=== PATIENT | female | born 1955 | race Caucasian/White ===

== ENCOUNTER 2019-07-13 12:52 | Emergency (ER) | payer SELFPAY ==
[2019-07-13 13:20] LABS: PTT,PARTIAL THROMBOPLSTIN TIME 29.6 SEC (23.2-32.3)
[2019-07-13 13:26] LABS: CHLORIDE,CL 91 mEq/L (98-106); SODIUM,NA 130 mEq/L (136-145)
[2019-07-13 13:28] VITALS: BP 153/83; PULSE 84
[2019-07-13] MEDS ORDERED: Sodium Chloride 0.9% 1,000 ML IV ONE (13:37)
[2019-07-13] MEDS ORDERED: Potassium Chloride 10 MEQ Tab.ER PO ONE (13:38)
--- NOTE | 2019-07-13 14:53 | EDM.PDOC ---
ED HPI GENERAL MEDICAL PROBLEM - General Chief Complaint: General Stated Complaint: elevated BP Time Seen by Provider: 07/13/19 13:09 Source of Information: Reports: Patient History Limitations: Reports: No Limitations - History of Present Illness INITIAL COMMENTS - FREE TEXT/NARRATIVE: This patient is a 63 year old female that presents to the ER. Patient reports that for the last several weeks she has danyell having high readings on her BP. She reports that she has also had intermittent headaches for several weeks, chest pain for weeks that is worse since yesterday. She also reports having many pain complaints and thinks its all related to her fibromyalgia and/or BP per patient. Patient reports that she tripped down four steps today while using her cane. Patient reports having right foot pain, but reports she has had this for a long time and nothing new. No injuries reported from fall. Patient denies loc , n, v, vision changes. Duration: Week(s): ("weeks") Location: Reports: Head, Chest Improves with: Reports: None Worsens with: Reports: None Associated Symptoms: Reports: Chest Pain, Headaches. Denies: Confusion, Cough, cough w sputum, Diaphoresis, Fever/Chills, Loss of Appetite, Malaise, Nausea/ Vomiting, Rash, Seizure, Shortness of Breath, Syncope, Weakness - Related Data Allergies Allergy/AdvReac Type Severity Reaction Status Date / Time No Known Allergies Allergy Verified 07/13/19 12:54 Home Meds: Home Meds ALPRAZolam [Xanax] 1 mg PO Q8H 09/26/15 [History] Cyclobenzaprine [Flexeril] 10 mg PO TID PRN 09/26/15 [History] Hydrocodone/Acetaminophen [[place] 5-325] 1 - 2 tab PO Q6H PRN 09/26/15 [History] Lisinopril/Hydrochlorothiazide [Lisinopril-Hctz 20-25 mg Tab] 1 tab PO DAILY [History] traMADol [Ultram] 50 mg PO Q6H PRN 09/26/15 [History] 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 Denies: Palpitations, Syncope Endocrine: Reports: No Symptoms GI/Abdominal: Reports: No Symptoms : Reports: No Symptoms Musculoskeletal: Reports: No Symptoms Skin: Reports: No Symptoms Neurological: Reports: Headache Psychiatric: Reports: No Symptoms Hematologic/Lymphatic: Reports: No Symptoms Immunologic: Reports: No Symptoms ED EXAM, GENERAL - Physical Exam Exam: See Below Exam Limited By: No Limitations General Appearance: Alert, WD/WN, No Apparent Distress Eye Exam: Bilateral Eye: EOMI, Normal Inspection, PERRL Ears: Normal External Exam, Normal Canal, Hearing Grossly Normal, Normal TMs Ear Exam: Bilateral Ear: Auricle Normal, Canal Normal, TM normal Nose: Normal Inspection, Normal Mucosa, No Blood Throat/Mouth: Normal Inspection, Normal Lips, Normal Teeth, Normal Gums, Normal Oropharynx, Normal Voice, No Airway Compromise Head: Atraumatic, Normocephalic Neck: Normal Inspection, Supple, Non-Tender, Full Range of Motion Respiratory/Chest: No Respiratory Distress, Lungs Clear, Normal Breath Sounds, No Accessory Muscle Use Cardiovascular: Normal Peripheral Pulses, Regular Rate, Rhythm, No Edema, No Gallop, No JVD, No Murmur, No Rub Peripheral Pulses: 2+: Radial (L), Radial (R), Posterior Tibial (L), Posterior Tibial (R) GI/Abdominal: Soft, Non-Tender Extremities: Normal Inspection, Normal Range of Motion, Non-Tender, No Pedal Edema, Normal Capillary Refill Neurological: Alert, Oriented, CN II-XII Intact, Normal Cognition, Normal Gait ( with cane), No Motor/Sensory Deficits Psychiatric: Normal Affect, Normal Mood Skin Exam: Warm, Dry, Intact, Normal Color, No Rash Lymphatic: No Adenopathy Course - Vital Signs Last Recorded V/S: Last Vital Signs Temp 99.1 F 07/13/19 12:58 Pulse 84 07/13/19 12:58 Resp 18 07/13/19 12:58 BP 153/83 H 07/13/19 12:58 Pulse Ox 97 07/13/19 12:58 - Orders/Labs/Meds Orders: Active Orders 24 hr Category Date Time Status Chest 2V [CR] Stat Exams 07/13/19 12:56 Taken TROPONIN I [CHEM] Stat Lab 07/13/19 16:00 Ordered Labs: Laboratory Tests 07/13/19 07/13/19 07/13/19 Range/Units 12:56 12:56 12:56 WBC 4.8 L (5.0-10.0) 10^3/uL RBC 4.58 (4.00-5.50) 10^6/uL Hgb 13.6 (12.0-16.0) g/dL Hct 38.5 (37.0-47.0) % MCV 84.1 (82.0-94.0) fL MCH 29.7 (27.0-32.0) pg MCHC 35.3 (33.0-38.0) g/dL RDW Coeff of Alissa 12.3 (11.0-15.0) % Plt Count 309 (150-400) 10^3/uL Neut % (Auto) 55.8 (35-85) % Lymph % (Auto) 25.4 (10-55) % [place] % (Auto) 17.8 H (0-16) % Eos % (Auto) 0.6 (0-5) % Baso % (Auto) 0.4 (0-3) % Neut # (Auto) 2.70 (1.80-7.00) 10^3/uL Lymph # (Auto) 1.23 (1.00-4.80) 10^3/uL [place] # (Auto) 0.86 H (0.00-0.80) 10^3/uL Eos # (Auto) 0.03 (0.00-0.45) 10^3/uL Baso # (Auto) 0.02 10^3/uL PT 10.1 (9.7-12.3) SEC INR 0.98 (0.92-1.18) APTT 29.6 (23.2-32.3) SEC Sodium 130 L (136-145) mEq/L Potassium 2.9 L* (3.5-5.0) mEq/L Chloride 91 L (98-106) mEq/L Carbon Dioxide 30 (21-32) mmol/L BUN 9 (7-18) mg/dL Creatinine 0.9 (0.6-1.0) mg/dL Est Cr Clr Drug Dosing TNP Estimated GFR (MDRD) > 60 (>=60) mL/min Glucose 113 H D (75-99) mg/dL Calcium 10.0 (8.4-10.1) mg/dL Total Bilirubin 0.3 (0.0-1.0) mg/dL AST 32 (15-37) U/L ALT 30 (12-78) U/L Alkaline Phosphatase 64 (46-116) U/L Lactate Dehydrogenase 233 H (100-190) U/L Creatine Kinase 421 H (21-215) U/L Troponin I 0.021 (0.00-0.06) ng/mL Total Protein 7.1 (6.4-8.2) g/dL Albumin 4.0 (3.4-5.0) g/dL Lipase 175 (73-393) U/L Meds: Medications Discontinued Medications Generic Name Dose Route Start Last Admin Trade Name Freq PRN Reason Stop Dose Admin Sodium Chloride 1,000 mls @ 1,000 mls/hr 07/13/19 13:37 Normal Saline IV 07/13/19 14:36 .BOLUS ONE Potassium Chloride 40 meq 07/13/19 13:38 Klor-Con 10 PO 07/13/19 13:39 ONETIME ONE - Re-Assessments/Exams Free Text/Narrative Re-Assessment/Exam: 07/13/19 13:26 This patient has low potassium, ordered potassium. Also, ordered a NS bolus. I also ordered head ct due to patient headaches. The patient has refused all. Patient instead has requested I fill out an insurance form for an insurance claim for her fall. The patient has also asked about the closest doctor to help her with disability. I reviewed the patient insurance form, there is no placed for a provider to fill out the claim, it is also patient based. She then asked me to write her an order for a better cane then the one she has. Her cane appears to be functioning without difficulty. Patient is alert and oriented. I also wanted to repeat a troponin, she has refused this as well. Patient explained all risk vs benefits. She was explained to see her PCP for most of her requests. Patient signed AMA and left against medical advice. She is aware of risks. Departure - Departure Time of Disposition: 15:06 Disposition: Against Medical Advice 07 Condition: Undetermined Clinical Impression: Left against medical advice Chest pain Qualifiers: Chest pain type: other chest pain Qualified Code(s): R07.89 - Other chest pain - Discharge Information *PRESCRIPTION DRUG MONITORING PROGRAM REVIEWED*: Not Applicable *COPY OF PRESCRIPTION DRUG MONITORING REPORT IN PATIENT KANDIS: Not Applicable Instructions: Nonspecific Chest Pain, [id number] Referrals: PCP,None [Primary Care Provider] - Forms: ED Department Discharge Additional Instructions: Followup with a primary care provider Return to the ER for emergencies Sepsis Event Note - Evaluation Sepsis Screening Result: No Definite Risk - Focused Exam Vital Signs: Vital Signs Temp Pulse Resp BP Pulse Ox 07/13/19 12:58 99.1 F 84 18 153/83 H 97 Date Exam was Performed: 07/13/19 Time Exam was Performed: 15:24 - My Orders Last 24 Hours: My Active Orders 07/13/19 12:56 Chest 2V [CR] Stat 07/13/19 16:00 TROPONIN I [CHEM] Stat - Assessment/Plan Last 24 Hours: My Active Orders 07/13/19 12:56 Chest 2V [CR] Stat 07/13/19 16:00 TROPONIN I [CHEM] Stat Plan: PLEASE SEE RN NOTE FOR PFSH
== END 2019-07-13 15:20 | disposition left against medical advice (07) ==
LOC: CC.ED 12:52
DX: R07.89 Other chest pain (principal); E87.6 Hypokalemia; Z79.899 Other long term (current) drug therapy
CPT/HCPCS: 36415; 71046; 80053; 82550; 83615; 83690; 84484; 85025; 85610; 85730; 93005; 99285-25

== ENCOUNTER 2020-04-28 14:40 | Emergency (ER) | payer SELFPAY ==
[2020-04-28 15:00] VITALS: BP 137/96; PULSE 94
[2020-04-28 16:53] LABS: CHLORIDE,CL 98 mEq/L (98-106); SODIUM,NA 139 mEq/L (136-145)
[2020-04-28 17:19] LABS: PTT,PARTIAL THROMBOPLSTIN TIME 25.9 SEC (23.2-32.3)
[2020-04-28] MEDS: Iopamidol 755 Mg/ML 100 ML Bottle IVPUSH ONE (17:53)
--- NOTE | 2020-04-28 18:49 | EDM.PDOC ---
ED HPI GENERAL MEDICAL PROBLEM - General Chief Complaint: General Stated Complaint: blood pressure Time Seen by Provider: 04/28/20 15:15 Source of Information: Reports: Patient History Limitations: Reports: No Limitations - History of Present Illness INITIAL COMMENTS - FREE TEXT/NARRATIVE: Elmira is a 64 yo female who presents to the ED via [facility] of an elevated blood pressure at home, chronic pain, shortness of breath and recent fall at home. Beth did have an appointment in clinic today but was really anxious and worrying about getting to her appointment which caused her to call the ambulance. States her blood pressure has been a lot higher at home and she did end up taking extra Lisinopril dose to help with it. Admits to persistent chest pain at times as well. Denies any change in discomfort or shortness of breath with exertion. States she does walk with a walker or cane at home secondary to a bad right ankle. States she was suppose to have surgery a few years back on her right foot/ankle but due to the cost, elected to not proceed. Admits with going up and down steps she has found herself to be extremely short of breath. Also states her allergies are acting up and would like a Zpack as she has a history of sinus infections. Location: Reports: Chest Lower Back Pain Score (Numeric/FACES): 8 - Related Data Allergies Allergy/AdvReac Type Severity Reaction Status Date / Time No Known Allergies Allergy Verified 04/28/20 15:16 Home Meds: Home Meds ALPRAZolam [Xanax] 1 mg PO Q8H 09/26/15 [History] Cyclobenzaprine [Flexeril] 10 mg PO TID PRN 09/26/15 [History] Hydrocodone/Acetaminophen [[place] 5-325] 1 - 2 tab PO Q6H PRN 09/26/15 [History] Lisinopril/Hydrochlorothiazide [Lisinopril-Hctz 20-25 mg Tab] 1 tab PO DAILY 09/26/15 [History] traMADol [Ultram] 50 mg PO Q6H PRN 09/26/15 [History] Aspirin 325 mg PO DAILY 04/28/20 [History] Budesonide [Rhinocort Allergy] 1 puff IN DAILY PRN 04/28/20 [History] Calcium Carbonate [Tums] 200 mg PO DAILY PRN 04/28/20 [History] Chlorpheniramine Maleate 4 mg PO DAILY PRN 04/28/20 [History] Cholecalciferol (Vitamin D3) [Vitamin D3] 5,000 unit PO BID 04/28/20 [History] Escitalopram [Lexapro] 20 mg PO DAILY 04/28/20 [History] Herbal Drugs [Colon Herbal Cleanser] 1 each PO BID PRN 04/28/20 [History] L.acidoph,Paracasei, B.lactis [Probiotic] 1 each PO DAILY 04/28/20 [History] Loratadine [Claritin] 10 mg PO DAILY 04/28/20 [History] Melatonin/Pyridoxine HCl (B6) [Melatonin 3 mg Tablet] 1 each PO BEDTIME 04/28/20 [History] Potassium Bicarbonate 1 gm MC DAILY 04/28/20 [History] guaiFENesin [Guaifenesin] 400 mg PO DAILY 04/28/20 [History] lisinopriL [Lisinopril] 20 mg PO DAILY PRN 04/28/20 [History] Past Medical History HEENT History: Reports: Impaired Vision Cardiovascular History: Reports: Hypertension Respiratory History: Reports: None Gastrointestinal History: Reports: Chronic Constipation (narcotic induced) Genitourinary History: Reports: None 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 Musculoskeletal History: Reports: Arthritis, Neck Pain, Chronic Neurological History: Reports: None Psychiatric History: Reports: Anxiety, Depression Oncologic (Cancer) History: Reports: Other (See Below) 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 - Infectious Disease History Infectious Disease History: Reports: Human Papilloma Virus (HPV) - Past Surgical History Female Surgical History: Reports: Hysterectomy Musculoskeletal Surgical History: Reports: Other (See Below) Other Musculoskeletal Surgeries/Procedures:: foot surgery Social & Family History - Tobacco Use Tobacco Use Status *Q: Never Tobacco User Second Hand Smoke Exposure: No - Caffeine Use Caffeine Use: Reports: Soda Other Caffeine Use: daily - Recreational Drug Use Recreational Drug Use: No ED ROS GENERAL - Review of Systems Review Of Systems: See Below Constitutional: Reports: Chills, Weakness, Decreased Appetite. Denies: Fever HEENT: Reports: No Symptoms Respiratory: Reports: Shortness of Breath. Denies: Wheezing, Cough Cardiovascular: Reports: Chest Pain, Blood Pressure Problem, Dyspnea on Exertion. Denies: Edema, Palpitations, Syncope GI/Abdominal: Reports: Constipation. Denies: Abdominal Pain, Bloody Stool, Diarrhea, Nausea, Vomiting : Reports: No Symptoms Musculoskeletal: Reports: Joint Pain (chronic foot pain, right elbow pain) Skin: Reports: No Symptoms Neurological: Reports: Headache. Denies: Numbness, Seizure, Syncope, Tingling, Weakness, Change in Speech Psychiatric: Reports: Anxiety, Depression ED EXAM, GENERAL - Physical Exam Exam: See Below Exam Limited By: No Limitations General Appearance: Alert, WD/WN, No Apparent Distress Eye Exam: Bilateral Eye: EOMI, Normal Inspection Ears: Normal External Exam, Normal Canal, Hearing Grossly Normal, Normal TMs Nose: Normal Inspection, No Blood Throat/Mouth: Normal Inspection, Normal Lips, Normal Teeth, Normal Oropharynx, Normal Voice, No Airway Compromise Head: Atraumatic, Normocephalic Neck: Normal Inspection, Supple Respiratory/Chest: No Respiratory Distress, Lungs Clear, Normal Breath Sounds, No Accessory Muscle Use Cardiovascular: Normal Peripheral Pulses, Regular Rate, Rhythm, No Edema, No Murmur GI/Abdominal: Normal Bowel Sounds, Soft, Non-Tender, No Distention Extremities: Normal Inspection, No Pedal Edema Neurological: Alert, Oriented, Normal Cognition, No Motor/Sensory Deficits Psychiatric: Anxious Skin Exam: Warm, Dry, Intact, Normal Color, No Rash #1 Interpretation EKG Date: 04/28/20 Rhythm: NSR Comparison: No Change Course - Vital Signs Last Recorded V/S: Last Vital Signs Temp 98.9 F 04/28/20 14:48 Pulse 94 04/28/20 14:48 Resp 12 04/28/20 14:48 BP 137/96 H 04/28/20 14:48 Pulse Ox 95 04/28/20 14:48 - Orders/Labs/Meds Orders: Active Orders 24 hr Category Date Time Status CTA Chest W WO Contrast [Ang Chest] [CT] Stat Exams 04/28/20 17:22 Taken Labs: Laboratory Tests 04/28/20 04/28/20 04/28/20 Range/Units 16:36 16:36 16:36 WBC 7.0 (5.0-10.0) 10^3/uL RBC 5.19 (4.00-5.50) 10^6/uL Hgb 14.9 (12.0-16.0) g/dL Hct 44.9 (37.0-47.0) % MCV 86.5 (82.0-94.0) fL MCH 28.7 (27.0-32.0) pg MCHC 33.2 (33.0-38.0) g/dL RDW Coeff of Alissa 13.3 (11.0-15.0) % Plt Count 349 (150-400) 10^3/uL Neut % (Auto) 57.1 (35-85) % Lymph % (Auto) 29.5 (10-55) % [place] % (Auto) 11.8 (0-16) % Eos % (Auto) 1.0 (0-5) % Baso % (Auto) 0.6 (0-3) % Neut # (Auto) 4.01 (1.80-7.00) 10^3/uL Lymph # (Auto) 2.07 (1.00-4.80) 10^3/uL [place] # (Auto) 0.83 H (0.00-0.80) 10^3/uL Eos # (Auto) 0.07 (0.00-0.45) 10^3/uL Baso # (Auto) 0.04 10^3/uL ESR 5 (0-20) mm/hr PT 10.0 (9.7-12.3) SEC INR 0.99 (0.92-1.18) APTT 25.9 (23.2-32.3) SEC D-Dimer, Quantitative 4.59 H (0.00-0.50) Sodium 139 (136-145) mEq/L Potassium 3.5 D (3.5-5.0) mEq/L Chloride 98 (98-106) mEq/L Carbon Dioxide 33 H (21-32) mmol/L BUN 17 D (7-18) mg/dL Creatinine 0.9 (0.6-1.0) mg/dL Est Cr Clr Drug Dosing 55.25 mL/min Estimated GFR (MDRD) > 60 (>=60) mL/min Glucose 89 (75-99) mg/dL Calcium 10.0 (8.4-10.1) mg/dL Magnesium 2.0 (1.8-2.4) mg/dL Total Bilirubin 0.3 (0.0-1.0) mg/dL AST 20 (15-37) U/L ALT 33 (12-78) U/L Alkaline Phosphatase 67 (46-116) U/L Lactate Dehydrogenase 227 H (100-190) U/L Creatine Kinase 110 (21-215) U/L Troponin I < 0.017 (0.00-0.06) ng/mL Total Protein 8.5 H (6.4-8.2) g/dL Albumin 4.5 (3.4-5.0) g/dL SARS CoV-2 RNA Rapid JOCELYNE (NEGATIVE) 04/28/20 Range/Units 17:28 WBC (5.0-10.0) 10^3/uL RBC (4.00-5.50) 10^6/uL Hgb (12.0-16.0) g/dL Hct (37.0-47.0) % MCV (82.0-94.0) fL MCH (27.0-32.0) pg MCHC (33.0-38.0) g/dL RDW Coeff of Alissa (11.0-15.0) % Plt Count (150-400) 10^3/uL Neut % (Auto) (35-85) % Lymph % (Auto) (10-55) % [place] % (Auto) (0-16) % Eos % (Auto) (0-5) % Baso % (Auto) (0-3) % Neut # (Auto) (1.80-7.00) 10^3/uL Lymph # (Auto) (1.00-4.80) 10^3/uL [place] # (Auto) (0.00-0.80) 10^3/uL Eos # (Auto) (0.00-0.45) 10^3/uL Baso # (Auto) 10^3/uL ESR (0-20) mm/hr PT (9.7-12.3) SEC INR (0.92-1.18) APTT (23.2-32.3) SEC D-Dimer, Quantitative (0.00-0.50) Sodium (136-145) mEq/L Potassium (3.5-5.0) mEq/L Chloride (98-106) mEq/L Carbon Dioxide (21-32) mmol/L BUN (7-18) mg/dL Creatinine (0.6-1.0) mg/dL Est Cr Clr Drug Dosing mL/min Estimated GFR (MDRD) (>=60) mL/min Glucose (75-99) mg/dL Calcium (8.4-10.1) mg/dL Magnesium (1.8-2.4) mg/dL Total Bilirubin (0.0-1.0) mg/dL AST (15-37) U/L ALT (12-78) U/L Alkaline Phosphatase (46-116) U/L Lactate Dehydrogenase (100-190) U/L Creatine Kinase (21-215) U/L Troponin I (0.00-0.06) ng/mL Total Protein (6.4-8.2) g/dL Albumin (3.4-5.0) g/dL SARS CoV-2 RNA Rapid JOCELYNE Negative (NEGATIVE) Meds: Medications Discontinued Medications Generic Name Dose Route Start Last Admin Trade Name Freq PRN Reason Stop Dose Admin Iopamidol 100 ml 04/28/20 17:26 04/28/20 17:53 Isovue-370 (76%) IVPUSH 04/28/20 17:27 100 ml ONETIME ONE Administration Departure - Departure Time of Disposition: 19:47 Disposition: Home, Self-Care 01 Clinical Impression: Shortness of breath Sinusitis, acute Qualifiers: Sinusitis location: unspecified location Recurrence: recurrent Qualified Code(s): J01.91 - Acute recurrent sinusitis, unspecified Chronic pain Qualifiers: Chronic pain type: other chronic pain Qualified Code(s): G89.29 - Other chronic pain Hypertension Qualifiers: Hypertension type: essential hypertension Qualified Code(s): I10 - Essential (primary) hypertension - Discharge Information Instructions: Shortness of Breath, Adult, [id number], Sinusitis, Adult, [id number], Chronic Pain, Adult Forms: ED Department Discharge Additional Instructions: 1) Labs, EKG and CTA of the chest did not show any acute findings. 2) Recommend taking 40mg in total of Lisinopril daily. 3) May continue with over the counter potassium supplement 4) Zpack to be used as directed 5) Promethazine with codeine as directed 6) Need to be seen in clinic with primary provider for all other refills 7) Return to ED if any concerns. Sepsis Event Note (ED) - Evaluation Sepsis Screening Result: No Definite Risk - Focused Exam Vital Signs: Vital Signs Temp Pulse Resp BP Pulse Ox 04/28/20 14:48 98.9 F 94 12 137/96 H 95 - Problem List & Annotations (1) Chronic pain SNOMED Code(s): 69935992 Code(s): G89.29 - OTHER CHRONIC PAIN Status: Acute Current Visit: Yes Qualifiers: Chronic pain type: other chronic pain Qualified Code(s): G89.29 - Other chronic pain (2) Hypertension SNOMED Code(s): 03926677 Code(s): I10 - ESSENTIAL (PRIMARY) HYPERTENSION Status: Acute Current Visit: Yes Qualifiers: Hypertension type: essential hypertension Qualified Code(s): I10 - Essential (primary) hypertension (3) Shortness of breath SNOMED Code(s): 386672760 Code(s): R06.02 - SHORTNESS OF BREATH Status: Acute Current Visit: Yes (4) Sinusitis, acute SNOMED Code(s): 59144672 Code(s): J01.90 - ACUTE SINUSITIS, UNSPECIFIED Status: Acute Current Visit: Yes Qualifiers: Sinusitis location: unspecified location Recurrence: recurrent Qualified Code(s): J01.91 - Acute recurrent sinusitis, unspecified - Problem List Review Problem List Initiated/Reviewed/Updated: Yes - My Orders Last 24 Hours: My Active Orders 04/28/20 17:22 CTA Chest W WO Contrast [Ang Chest] [CT] Stat - Assessment/Plan Last 24 Hours: My Active Orders 04/28/20 17:22 CTA Chest W WO Contrast [Ang Chest] [CT] Stat Plan: will discharge patient at this time. EKG, CTA of chest, labs are all unremarkable today. No concerns noted. Discussed with patient into detail she needs to see her primary in regards to majority of her complaints. I declined filling hydrocodone and ativan prescriptions today as this needs to be done by primary provider.
== END 2020-04-28 20:00 | disposition home or self-care (01) ==
LOC: CC.ED 14:40
DX: I10 Essential (primary) hypertension (principal); G89.29 Other chronic pain; J01.91 Acute recurrent sinusitis, unspecified; R06.02 Shortness of breath; M19.90 Unspecified osteoarthritis, unspecified site; F41.9 Anxiety disorder, unspecified; F32.9 Major depressive disorder, single episode, unspecified; Z79.82 Long term (current) use of aspirin; Z20.828 Contact with and (suspected) exposure to other viral communicable diseases; Z79.899 Other long term (current) drug therapy
CPT/HCPCS: 36415; 71275; 80053; 82550; 83615; 83735; 84484; 85025; 85379; 85610; 85651; 85730; 93005; 99285-25; Q9967; U0002

== ENCOUNTER 2022-03-27 09:01 | Emergency (ER) | payer MEDICARE ==
[2022-03-27 11:24] VITALS: BP 152/88; PULSE 71
== END 2022-03-27 11:24 | disposition home or self-care (01) ==
LOC: CC.ED 09:01
DX: I10 Essential (primary) hypertension (principal); Z79.82 Long term (current) use of aspirin; Z88.0 Allergy status to penicillin; Z79.899 Other long term (current) drug therapy
CPT/HCPCS: 36415; 70450; 80053; 82550; 83735; 84484; 85025; 93005; 99284

== ENCOUNTER 2022-08-02 08:43 | Emergency (ER) | payer MEDICARE, OTHER ==
[2022-08-02 08:59] VITALS: BP 142/87; PULSE 87
[2022-08-02] MEDS: Alum Hydrox/Mag Hydrox/Simeth 30 ML, Lidocaine 2% 15 ML PO ONE ×2 (09:18)
[2022-08-02 09:28] LABS: CHLORIDE,CL 101 mEq/L (98-106); SODIUM,NA 138 mEq/L (136-145)
[2022-08-02 09:29] LABS: ESTIMATED GFR 82 mL/min (>=60)
[2022-08-02] MEDS: LORazepam 2 MG/ML Syringe IVPUSH ONE (09:47)
== END 2022-08-02 13:35 | disposition home or self-care (01) ==
LOC: CC.ED 08:43
DX: K52.9 Noninfective gastroenteritis and colitis, unspecified (principal); F41.9 Anxiety disorder, unspecified; I10 Essential (primary) hypertension; M19.90 Unspecified osteoarthritis, unspecified site; Z88.0 Allergy status to penicillin; Z79.82 Long term (current) use of aspirin; Z79.899 Other long term (current) drug therapy
CPT/HCPCS: 36415; 71045; 74177; 80053; 81001; 83690; 83735; 84484; 85025; 86140; 93005; 93010; 96374; 99284; 99285-25; A9270-GY; J2060

== ENCOUNTER 2022-09-08 20:17 | Emergency (ER) | payer MEDICARE ==
[2022-09-08] MEDS ORDERED: Alum Hydrox/Mag Hydrox/Simeth 30 ML, Lidocaine 2% 15 ML PO ONE ×2 (20:30)
[2022-09-08 21:04] LABS: CHLORIDE,CL 95 mEq/L (98-106); SODIUM,NA 135 mEq/L (136-145)
[2022-09-08 21:06] LABS: ESTIMATED GFR 71 mL/min (>=60)
[2022-09-08] MEDS ORDERED: Iopamidol 755 Mg/ML 100 ML Bottle IVPUSH ONE (21:31)
[2022-09-08 23:14] VITALS: BP 133/88; PULSE 80
== END 2022-09-08 22:45 | disposition home or self-care (01) ==
LOC: CC.ED 20:17
DX: R10.13 Epigastric pain (principal); G89.29 Other chronic pain; I10 Essential (primary) hypertension; M19.90 Unspecified osteoarthritis, unspecified site; Z79.82 Long term (current) use of aspirin; Z79.899 Other long term (current) drug therapy; Z88.0 Allergy status to penicillin
CPT/HCPCS: 36415; 74177; 80053; 81001; 83690; 83735; 84443; 84484; 85025; 93005; 93010; 99284; A9270-GY; Q9967

== ENCOUNTER → 2022-10-07 | Day surgery (SDC) | payer MEDICARE ==
[~2022-10-07] MED LIST: Lactated Ringers 1,000 ML IV SCH
[2022-10-07 12:35] VITALS: BP 112/67; PULSE 68
== END ==
LOC: CC.SDS 09:25
PROVIDERS: ATTEND Family Medicine
DX: K29.50 Unspecified chronic gastritis without bleeding (principal); K21.9 Gastro-esophageal reflux disease without esophagitis; F41.9 Anxiety disorder, unspecified; F32.A Depression, unspecified; Z88.0 Allergy status to penicillin; Z79.899 Other long term (current) drug therapy; Z79.82 Long term (current) use of aspirin; Z98.890 Other specified postprocedural states
CPT/HCPCS: 00813; 43239; 45378; 87081; 88305; J7120

== ENCOUNTER 2024-04-26 09:59 | Day surgery (SDC) | payer MEDICARE ==
[2024-04-26] MEDS: Lactated Ringers 1,000 ML IV SCH (10:36)
[2024-04-26] MEDS ORDERED: Propofol 200 MG/20 ML SDV ONE (11:02)
[2024-04-26] MEDS ORDERED: Ketamine 200 MG/20 ML MDV ONE (11:02)
[2024-04-26] MEDS ORDERED: Midazolam 1 MG/ML 2 ML SDV ONE (11:02)
[2024-04-26] MEDS ORDERED: fentaNYL 50 MCG/ML SDV ONE (11:02)
[2024-04-26 12:35] VITALS: BP 140/87; PULSE 61
== END 2024-04-26 12:50 | disposition home or self-care (01) ==
LOC: CC.SDS 09:59
PROVIDERS: ATTEND Family Medicine
DX: K57.30 Diverticulosis of large intestine without perforation or abscess without bleeding (principal); K63.89 Other specified diseases of intestine; K21.9 Gastro-esophageal reflux disease without esophagitis; K59.00 Constipation, unspecified; I10 Essential (primary) hypertension; G20.A1 Parkinson's disease without dyskinesia, without mention of fluctuations; F41.9 Anxiety disorder, unspecified; F32.A Depression, unspecified; I47.10 Supraventricular tachycardia, unspecified; M06.9 Rheumatoid arthritis, unspecified; Z79.82 Long term (current) use of aspirin; Z79.899 Other long term (current) drug therapy; Z88.0 Allergy status to penicillin
CPT/HCPCS: 00811; 88305; J2250; J2704; J3010; J3490; J7120